=== PATIENT | male | born 1995 | race Caucasian/White ===

== ENCOUNTER 2023-04-02 18:44 | Emergency (ER) | payer OTHER ==
--- NOTE | 2023-04-02 18:47 | ED ---
General Adult HPI <Preston Basurto - Last Filed: 04/02/23 18:48> - General Source: patient, RN notes reviewed, old records reviewed <Jose Baer - Last Filed: 04/02/23 21:38> - General Stated complaint: right foot injury - History of Present Illness Initial comments: 28 year old male states that he was cutting wood when the wood splitter landed on his right foot now presents to the ED for further evaluation. (Preston Basurto) Patient is a 28-year-old male presents with department after having a heavy log splitter landed on his right foot. States is helping carry a when it dropped on his right foot. Has pain at the base of the right small toe. Able to ambulate. No other acute complaint at this time. No sensory deficits. Able to move all toes. Initially seen as quickly note. (Jose Baer) Review of Systems ROS Other: All systems not noted in ROS Statement are negative. <Prseton Basurto - Last Filed: 04/02/23 18:48> ROS Other: All systems not noted in ROS Statement are negative. <Jose Baer - Last Filed: 04/02/23 21:38> ROS Statement: Those systems with pertinent positive or pertinent negative responses have been documented in the HPI. Review of Systems: CONST: Denies fever EYES: Denies blurry vision ENT: Denies nasal congestion C/V: Denies Chest pain RESP: Denies shortness of breath GI: Denies abdominal pain : Denies dysuria SKIN: Denies rash. MSK: Endorses right foot pain NEURO: Denies headache (Jose Baer) General Exam General appearance: alert Neck exam: Present: normal inspection Extremities exam: Present: normal inspection Back exam: Present: normal inspection Neurological exam: Present: alert <Preston Basurto - Last Filed: 04/02/23 18:48> <Jose Baer - Last Filed: 04/02/23 21:38> - General Exam Comments Initial Comments: General: Appears in mild distress secondary to pain. HEAD: Normal with no signs of head trauma. EYES: EOMI. ENT: Hearing grossly intact. RESPIRATORY: No respiratory distress. C/V: Peripheral pulses 2+ intact throughout. ABD: Abdomen is nondistended. EXT: No obvious deformity. Normal range of motion of the right ankle, foot. Tenderness palpation of the base of the right fifth toe at the distal metatarsal. No obvious deformity palpated. Neuro Vascular intact throughout. SKIN: No rashes or lesions observed on exposed skin. NEURO: Alert and oriented. (Jose Baer) Course Vital Signs 04/02/23 19:27 Temperature 98.2 F Pulse Rate 122 H Respiratory 18 Rate Blood Pressure 161/89 O2 Sat by Pulse 100 Oximetry Medical Decision Making <Preston Basurto - Last Filed: 04/02/23 18:48> <Jose Baer - Last Filed: 04/02/23 21:38> - Medical Decision Making Quicknote portion performed. Signed Preston Basurto PA-C (Preston Basurto) Was pt. sent in by a medical professional or institution (JENI Edmonds, PLATE FURNACE OPERATOR, urgent care, hospital, or prison...) When possible be specific @ -No Did you speak to anyone other than the patient for history (EMS, parent, family, police, friend...)? What history was obtained from this source @ -No Did you review nursing and triage notes (agree or disagree)? Why? @ -I reviewed and agree with nursing and triage notes Were old charts reviewed (outside hosp., previous admission, EMS record, old EKG, old radiological studies, urgent care reports/EKG's, prison records)? Report findings @ -No old charts were reviewed Differential Diagnosis (chest pain, altered mental status, abdominal pain women, abdominal pain men, vaginal bleeding, weakness, fever, dyspnea, syncope, headache, dizziness, GI bleed, back pain, seizure, CVA, palpatations, mental health, musculoskeletal)? @ -Differential Musculoskeletal Muscular strain, contusion, ligament sprain, fracture, arthritis, septic arthritis, bursitis, cellulitis, muscle spasm, nerve compression, DVT, arterial occlusion, herpes zoster, electrolyte abnormality, tumor.... This is not meant to be in all inclusive list EKG interpreted by me (3pts min.). @ -None known X-rays interpreted by me (1pt min.). @ -Right foot x-ray shows no obvious traumatic injury CT interpreted by me (1pt min.). @ -None done U/S interpreted by me (1pt. min.). @ -None done What testing was considered but not performed or refused? (CT, X-rays, U/S, labs)? Why? @ -None What meds were considered but not given or refused? Why? @ -None Did you discuss the management of the patient with other professionals (professionals i.e. , PA, PLATE FURNACE OPERATOR, lab, RT, psych nurse, protective services social worker, manager flight operations, teacher, workplace rehabilitation officer, home health care case manager)? Give summary @ -No Was smoking cessation discussed for >3mins.? @ -No Was critical care preformed (if so, how long)? @ -No Were there social determinants of health that impacted care today? How? (Homelessness, low income, unemployed, alcoholism, drug addiction, transportation, low edu. Level, literacy, decrease access to med. care, group home, rehab)? @ -No Was there de-escalation of care discussed even if they declined (Discuss DNR or withdrawal of care, Hospice)? DNR status @ -No What co-morbidities impacted this encounter? (DM, HTN, Smoking, COPD, CAD, Cancer, CVA, ARF, Chemo, Hep., AIDS, mental health diagnosis, sleep apnea, morbid obesity)? @ -None Was patient admitted / discharged? Hospital course, mention meds given and route, prescriptions, significant lab abnormalities, going to OR and other pertinent info. @ -Based on patient's presentation and physical exam, concern for right foot injury. Patient evaluated as a quick note initially. X-ray negative for any fracture. I evaluated the patient this plan and updated him as well as family. They expressed understanding. Patient will be given a [place] as well as analgesic medications for home. Vital signs are within acceptable limits. Discussed with him that if if he is continuing to have pain in one week he should seek repeat x-ray to evaluate for any occult fracture. They were in agreement this plan. he'll be discharged home at this time. Recommended ice, elevation, rest. I will provide the patient with a prescription for Tylenol 3 starter pack. I instructed the patient to follow up with their PCP in the next 1-3 days. I exp lained that the patient should return to the emergency department if they experience any worsening symptoms. Strict return precautions were discussed with the patient. The patient expressed understanding of these instructions. I answered all questions that the patient had. The patient was discharged home in good condition with their prescriptions and follow up information. Undiagnosed new problem with uncertain prognosis? @ -No Drug Therapy requiring intensive monitoring for toxicity (Heparin, Nitro, Insulin, Cardizem)? @ -No Were any procedures done? @ -No Diagnosis/symptom? @ -Right foot contusion Acute, or Chronic, or Acute on Chronic? @ -Acute Uncomplicated (without systemic symptoms) or Complicated (systemic symptoms)? @ -Uncomplicated Side effects of treatment? @ -No Exacerbation, Progression, or Severe Exacerbation? @ -No Poses a threat to life or bodily function? How? (Chest pain, [place], [place], pneumonia, PE, COPD, DKA, ARF, appy, cholecystitis, CVA, Diverticulitis, Homicidal, Suicidal, threat to staff... and all critical care pts) @ -No (Jose Baer) Disposition <Preston Basurto - Last Filed: 04/02/23 18:48> Is patient prescribed a controlled substance at d/c from ED?: No Time of Disposition: 21:31 <Jose Baer - Last Filed: 04/02/23 21:38> Clinical Impression: Contusion of right foot Disposition: HOME SELF-CARE Condition: Good Instructions (If sedation given, give patient instructions): Foot Contusion (ED) Referrals: None,Stated [Primary Care Provider] - 1-2 days Enrico Seay DO [Doctor of Osteopathic Medicine] - 1-2 days Forms: Area PCPs
--- NOTE | 2023-04-02 19:33 | XR ---
PROCEDURE: XR foot complete RT - 3V DATE AND TIME: 04/02/2023 7:14 PM CLINICAL INDICATION: PHH; r foot injury TECHNIQUE: Department protocol COMPARISON: None FINDINGS: There is no fracture or malalignment. The soft tissues are unremarkable. IMPRESSION: NO ACUTE PROCESS.
[2023-04-02 19:34] VITALS: BP 161/89; PULSE 122; RESP 18; TEMP 98.2
[2023-04-02] MEDS ORDERED: ACET/COD 300 MG/30 MG STARTER PACK 6 TAB BTL PO STA (21:32)
== END 2023-04-02 22:01 | disposition home or self-care (01) ==
LOC: EC 18:44
DX: S90.31XA Contusion of right foot, initial encounter (principal); W20.8XXA Other cause of strike by thrown, projected or falling object, initial encounter
CPT/HCPCS: 99283